=== PATIENT | female | born 1995 | race African-American/Black ===

== ENCOUNTER 2021-03-24 18:42 | Emergency (ER) | payer MEDICAID ==
[~2021-03-24] VITALS: Ht 157.5 cm; Wt 75.0 kg
[2021-03-25 03:04] LABS: BASOPHILS % 0.3 % (0.0-2.0); EOSINOPHILS % 1.4 % (0.0-5.0); HEMATOCRIT. 40.9 % (36.0-48.0); HEMOGLOBIN. 13.1 g/dL (12.0-16.0); LYMPHOCYTES % 27.2 % (20.0-50.0); MEAN CORPUSCULAR HEMOGLOBIN 28.8 pg (28.0-32.0); MEAN CORPUSCULAR VOLUME 89.9 fL (81.0-99.0); MEAN PLATELET VOLUME 10.3 fl (7.4-10.4); MONOCYTES % 9.2 % (2.0-8.0); NEUTROPHILS % 61.9 % (40.0-76.0); PLATELET 255 x1000/uL (130-400); RED BLOOD CELL COUNT 4.55 mill/uL (4.2-5.4)
[2021-03-25 03:06] LABS: CHLORIDE 107 mEq/L (98-107)
[2021-03-25] MEDS ORDERED: CEFTRIAXONE SODIUM 500 MG/VIAL IM SCH (03:15)
[2021-03-25] MEDS ORDERED: AZIT500T8 PO (03:21)
[2021-03-25 03:36] VITALS: BP 150/72
[2021-03-25] MEDS ORDERED: METR500T MT (03:39)
[2021-03-25 05:53] LABS: B-HCG QUANTITATIVE 87418 mIU/mL (<3)
[2021-03-29 04:12] LABS: NEISSERIA GONORRHOEAE NAA Negative (Negative)
== END 2021-03-25 03:36 | disposition left against medical advice (07) ==
LOC: ER 18:42
DX: O46.91 Antepartum hemorrhage, unspecified, first trimester (principal); Z3A.10 10 weeks gestation of pregnancy
CPT/HCPCS: 36415; 76801; 76817; 80053; 81025; 84702; 85025; 86850; 86900; 86901; 87210; 87491; 87591; 96372; 99284; J0696

== ENCOUNTER 2021-08-29 19:16 | Observation (INO) | payer MEDICAID, OTHER ==
[~2021-08-29] VITALS: Ht 157.5 cm; Wt 85.3 kg
[~2021-08-29 19:16] MED LIST: AZIT500T8 PO; METR500T MT
[2021-08-29 21:16] LABS: CLARITY URINE CLEAR (CLEAR); COLOR URINE DARK YELLOW (YELLOW); KETONES URINE NEGATIVE (NEGATIVE); LEUKOCYTE ESTERASE URINE TRACE (NEGATIVE); NITRITE URINE NEGATIVE (NEGATIVE); OCCULT BLOOD URINE NEGATIVE (NEGATIVE); PROTEIN URINE NEGATIVE (NEGATIVE); SPECIFIC GRAVITY URINE 1.006 (1.005-1.030); UROBILINOGEN URINE 0.2 E.U./dL (0.2-1.0)
[2021-09-09] MEDS ORDERED: TYLENOL (04:16)
== END 2021-08-29 22:30 | disposition home or self-care (01) ==
LOC: 8 EST LDRP 19:16
PROVIDERS: ADMIT Obstetrics & Gynecology; ATTEND Obstetrics & Gynecology
DX: O62.9 Abnormality of forces of labor, unspecified (principal); O26.893 Other specified pregnancy related conditions, third trimester; R42 Dizziness and giddiness; Z3A.32 32 weeks gestation of pregnancy
CPT/HCPCS: 59025; 76705; 76805; 76818; 81003; 82731; G0378; 99281

== ENCOUNTER 2021-09-06 11:22 | Observation (INO) | payer OTHER ==
[~2021-09-06] VITALS: Ht 157.5 cm; Wt 81.6 kg
[2021-09-06] MEDS ORDERED: LACTATED RINGERS 1,000 ML IV SCH (13:00)
[2021-09-06] MEDS ORDERED: CITRIC ACID/SODIUM CITRATE SOLN 30ML UDC PO ONE (13:00)
[2021-09-06] MEDS ORDERED: ONDANSETRON HCL 4MG/2ML INJ IV PRN (13:00)
[2021-09-06 14:50] LABS: CHLORIDE 106 mEq/L (98-107)
[2021-09-06] MEDS ORDERED: ACETAMINOPHEN WITH CODEINE 300/30MG TABLET PO NR (16:08)
[2021-09-06 16:20] VITALS: BP 120/78
[2021-09-06] MEDS ORDERED: PNV1TABL76 PO (16:39)
[2021-09-09] MEDS ORDERED: TYLENOL (04:16)
== END 2021-09-06 16:53 | disposition home or self-care (01) ==
LOC: 8 EST LDRP 11:22
PROVIDERS: ADMIT Obstetrics & Gynecology; ATTEND Obstetrics & Gynecology
DX: O99.613 Diseases of the digestive system complicating pregnancy, third trimester (principal); K85.10 Biliary acute pancreatitis without necrosis or infection; O26.893 Other specified pregnancy related conditions, third trimester; R10.11 Right upper quadrant pain; Z3A.33 33 weeks gestation of pregnancy
CPT/HCPCS: 36415; 80053; 96361; 96374; G0378; J2405; 59025; 99281

== ENCOUNTER 2021-10-04 09:06 | Emergency (ER) | payer OTHER ==
[~2021-10-04] VITALS: Ht 157.5 cm; Wt 77.0 kg
[~2021-10-04 09:06] MED LIST changes: -AZIT500T8 PO; +IBUP-2030 PO; -METR500T MT; +PNV1TABL76 PO; +TYLENOL
[2021-10-04 09:28] VITALS: BP 116/73
[2021-10-04] MEDS ORDERED: ONDANSETRON HCL 4MG/2ML INJ IV STA (09:44)
[2021-10-04] MEDS ORDERED: FAMOTIDINE 20MG/2ML VIAL IV STA (09:44)
[2021-10-04] MEDS ORDERED: SODIUM CHLORIDE 0.9% 1,000 ML IV ONE (09:45)
[2021-10-04 10:12] LABS: BASOPHILS % 0.5 % (0.0-2.0); EOSINOPHILS % 0.8 % (0.0-5.0); HEMATOCRIT. 33.9 % (36.0-48.0); HEMOGLOBIN. 10.6 g/dL (12.0-16.0); LYMPHOCYTES % 26.2 % (20.0-50.0); MEAN CORPUSCULAR HEMOGLOBIN 24.9 pg (28.0-32.0); MEAN CORPUSCULAR VOLUME 79.7 fL (81.0-99.0); MEAN PLATELET VOLUME 9.6 fl (7.4-10.4); MONOCYTES % 8.2 % (2.0-8.0); NEUTROPHILS % 64.3 % (40.0-76.0); PLATELET 278 x1000/uL (130-400); RED BLOOD CELL COUNT 4.25 mill/uL (4.2-5.4); RED CELL DISTRIBUTION WIDTH 17.5 % (11.6-14.6)
[2021-10-04 10:21] LABS: CHLORIDE 109 mEq/L (98-107)
[2021-10-04 10:31] LABS: HCG SCREEN INDETERMINATE
[2021-10-04] MEDS ORDERED: MORPHINE SULFATE 4 MG/ML CPJ (NOT FOR IM USE) IV ONE (10:45)
[2021-10-04 11:34] LABS: CLARITY URINE CLEAR (CLEAR); COLOR URINE YELLOW (YELLOW); KETONES URINE NEGATIVE (NEGATIVE); LEUKOCYTE ESTERASE URINE 2+ (NEGATIVE); NITRITE URINE NEGATIVE (NEGATIVE); OCCULT BLOOD URINE 2+ (NEGATIVE); PH URINE 7.5 (4.5-8.0); PROTEIN URINE NEGATIVE (NEGATIVE); SPECIFIC GRAVITY URINE 1.004 (1.005-1.030); UROBILINOGEN URINE 0.2 E.U./dL (0.2-1.0)
[2021-10-04] MEDS ORDERED: METRONIDAZOLE 500MG TABLET PO SCH (12:45)
[2021-10-04] MEDS ORDERED: CEFTRIAXONE 1 G PREMIX 50 ML IV ONE (13:00)
== END 2021-10-04 18:21 | disposition left against medical advice (07) ==
LOC: ER 09:15 → EDBEDREQ 16:10 → EDBEDREQTM 16:10 → CANBEDREQ 17:23 → ER 18:21
DX: K80.50 Calculus of bile duct without cholangitis or cholecystitis without obstruction (principal); A59.9 Trichomoniasis, unspecified; R79.89 Other specified abnormal findings of blood chemistry; Z98.890 Other specified postprocedural states
CPT/HCPCS: 36415; 76705; 80053; 81003; 83690; 84703; 85025; 96361; 96365; 96375; 99284; J0696; J2270; J2405; J3490; J7030